=== PATIENT | male | born 1985 | race Caucasian/White ===

== ENCOUNTER → 2022-10-25 00:40 | Emergency (ER) | payer SELFPAY ==
[~2022-10-25] VITALS: Ht 170.2 cm; Wt 90.7 kg
[2022-10-25 00:44] VITALS: BP 140/92; PULSE 98; RESP 16; TEMP 97.4; O2SAT 100
== END ==
LOC: MED 00:40
DX: Z02.89 Encounter for other administrative examinations (principal); V89.2XXA Person injured in unspecified motor-vehicle accident, traffic, initial encounter; Y93.89 Activity, other specified; Y92.410 Unspecified street and highway as the place of occurrence of the external cause; Y99.8 Other external cause status
CPT/HCPCS: 99283